=== PATIENT | male | born 1965 ===

== ENCOUNTER 2025-05-31 06:00 | Day surgery (SDC) | payer OTHER ==
[2025-05-26 08:39] LABS: BASO % 1.0 % (0.1-1.2); EOS # 0.21 (0.04-0.54); EOS % 3.0 % (0.7-7.0); LYMPH # 1.73 (1.18-3.74); LYMPH % 24.4 % (19.3-53.1); MEAN PLATELET VOLUME 10.20 fl (9.4-12.4); MONO # 0.80 (0.24-0.82); MONO % 11.3 % (4.7-12.5); NEUT # 4.25 (1.56-6.13); NEUT % 59.7 % (34.0-71.1); RED CELL DISTRIBUTION WIDTH 13.0 % (11.6-14.4)
[2025-05-26 08:41] LABS: URINE APPEARANCE Clear; URINE BILIRRUBIN Negative (NEGATIVE); URINE BLOOD Negative; URINE COLOR Yellow; URINE KETONE Negative (NEGATIVE); URINE LEUKOCYTE Negative; URINE NITRATE Negative; URINE PROTEIN Negative (NEGATIVE); URINE UROBILINOGEN 0.2 E.U./dl
[2025-05-26 08:44] LABS: URINE WBC 2.4 uL (0.0-23.2)
[2025-05-26 09:01] VITALS: BP 160/73
[2025-05-26 09:04] LABS: URINE BACTERIA 1.1 uL (0.0-1933); URINE CAST 0.14 uL (0.0-1.40); URINE EPITHELIAL CELLS 0.4 uL (0.0-38.8); URINE GLUCOSE >=1000 MG/DL (NEGATIVE); URINE RBC 1.3 uL (0.0-20.8)
[2025-05-26 09:10] LABS: INR 1.04
[2025-05-26 09:37] LABS: ALT/SGPT 36.0 U/L (12-78); AST/SGOT 12.0 U/L (15-37); BILIRUBIN TOTAL 0.58 mg/dL (0.3-1.2); BUN CREA RATIO 17.0 (7.0-25.0); CREATININE SERUM 1.24 mg/dL (0.70-1.30); GFR 59.46; GLOBULINA 3.0 G/DL (2.4-3.5); OSMOLALITY SERUM 292.0 MOSM/KG (275-295)
[2025-05-26 09:38] LABS: GLUCOSE FASTING 206.0 mg/dL (65-100)
[~2025-05-31] VITALS: Ht 162.6 cm; Wt 105.7 kg
[~2025-05-31 06:00] MED LIST: ATORVASTATIN CA40 MG PO; CEFAZOLIN SODIUM 1,000 MG VIAL ONE; GLIMEPIRIDE4 MG; JARDIANCE10 MG PO; NORVASC10 MG PO; TRICOR145 MG PO
[2025-05-31] MEDS ORDERED: BUPIVACAINE HCL/MPF 0.5% 30ML VIAL ONE (07:23)
[2025-05-31] MEDS ORDERED: LIDOCAINE HCL 1%/EPINEPHRINE 20ML VIAL IJ ONE (08:35)
[2025-05-31] MEDS ORDERED: SODIUM BICARBONATE 1 MEQ/ML DISP.SYRIN 50ML IV ONE (08:45)
[2025-05-31] MEDS ORDERED: SODIUM BICARBONATE 50MEQ/50ML VIAL IV ONE (08:51)
[2025-05-31] MEDS ORDERED: CEFAZOLIN SODIUM 1,000 MG VIAL IV ONE ×2 (10:15→11:45)
== END 2025-05-31 13:45 | disposition home or self-care (01) ==
LOC: CIR.AMB 06:00
PROVIDERS: ATTEND Orthopaedic Surgery Hand Surgery
DX: M65.332 Trigger finger, left middle finger (principal); M65.342 Trigger finger, left ring finger